=== PATIENT | male | born 1985 | race Caucasian/White ===

== ENCOUNTER 2017-07-17 03:34 | Emergency (ER) | payer OTHER ==
[2017-07-17 03:56] VITALS: BP 126/78; PULSE 84; RESP 21; TEMP 98.5; O2SAT 98
[2017-07-17] MEDS ORDERED: ZIPRASIDONE MESYLATE 20 MG VIAL IM ONE (04:00)
[2017-07-17] MEDS ORDERED: diphenhydrAMINE HCL 50 MG/ML VIAL IM ONE (04:00)
--- NOTE | 2017-07-17 07:16 | PD ---
HPI Chief Complaint: Alcohol/Drug Intoxication Time Seen by Provider: 03:47 Travel History International Travel<30 days: No Contact w/Intl Traveler<30days: No Traveled to known affect area: No History of Present Illness HPI Patient is a 32-year-old male who was apparently picked up by the police because of possible drug transaction but mainly it was because he was very intoxicated as being transported by the police he started trying to kick out the window and he was too intoxicated for the precinct so they brought him to the ER patient is very belligerent and cursing and not redirectable he was refusing to cooperate and I explained to him he could not be released he is too intoxicated. Patient says he's been more intoxicated before the numbness. Patient is given 50 IM of Benadryl and 10 of Geodon IM and 4 of Ativan IM he takes him over and half an hour from the falls sleep at which point his restraints were taken off and he is observed in the ER [facility] Past Medical History Medical History: Unable to Obtain Diminished Hearing: No Tetanus Vaccination: Unknown Past Surgical History Surgical History: Unable to Obtain Social History Alcohol Use: Yes Tobacco Use: No Substance Use: No (UTO) Allergies-Medications (Allergen,Severity, Reaction): Coded Allergies: No Known Allergies (Verified Allergy, Unknown, 07/17/17) Reported Meds & Prescriptions Reported Meds & Active Scripts Active No Active Prescriptions or Reported Medications Review of Systems ROS Limitations: Intoxication, Uncooperative Physical Exam Narrative GENERAL: agitated appears under the influence of some intoxicant SKIN: Warm and dry. HEAD: Atraumatic. ENT: No nasal bleeding or discharge. Mucous membranes pink and moist. NECK: Trachea midline. No JVD. CARDIOVASCULAR: Regular rate and rhythm. RESPIRATORY: no resp distress GASTROINTESTINAL: nondistended.. MUSCULOSKELETAL: Extremities without clubbing, cyanosis, or edema. No obvious deformities. NEUROLOGICAL: Awake and alert. No obvious cranial nerve deficits. Motor grossly within normal limits. Five out of 5 muscle strength in the arms and legs. Normal speech. PSYCHIATRIC: agitated threatening swearing at police and nurseing staff thrashing about in stretcher even after sedation . Data Data Last Documented VS Vital Signs Date Time Temp Pulse Resp B/P (MAP) Pulse Ox O2 Delivery O2 Flow Rate FiO2 07/17/17 03:56 98.5 84 21 126/78 (94) 98 Orders Orders Ziprasidone Inj (Geodon Inj) (07/17/17 04:00) Diphenhydramine Inj (Benadryl Inj) (07/17/17 04:00) Ed Discharge Order (07/17/17 09:39) MDM Medical Decision Making Medical Screen Exam Complete: Yes Emergency Medical Condition: Yes Differential Diagnosis Agitated alcohol-induced mood versus psychiatric mood disorder versus possibly substance abuse mood induced disorder Narrative Course Patient is quite agitated and a danger to himself I tried to explain to him he cannot leave and he needs to sleep it off he refuses and we decided medical restraint with chemical Geodon Benadryl Ativan is given and he sleeps finally and is then taken out of soft restraints and allowed to sleep that he'll be discharged in the a.m. on re-eval Diagnosis Primary Impression: Alcohol intoxication Scripts No Active Prescriptions or Reported Meds Donny Jacobsen MD Jul 17, 2017 07:16
--- NOTE | 2017-07-17 09:38 | PD ---
Physical Exam Narrative Informed by nurse that pt woke up and when she went to check his blood pressure , he refused and said "I'm f-ing leaving" and walked out. Pt had no IV on him and was ambulating without assistance. I was not able to reevaluate him since he walked out and was clinically sober. Pt was seen by previous provider and impression was alcohol intoxication and was medically clear to be discharge when he is sober. Pt is not a bourne act. Data Data Last Documented VS Vital Signs Date Time Temp Pulse Resp B/P (MAP) Pulse Ox O2 Delivery O2 Flow Rate FiO2 07/17/17 03:56 98.5 84 21 126/78 (94) 98 Orders Orders Ziprasidone Inj (Geodon Inj) (07/17/17 04:00) Diphenhydramine Inj (Benadryl Inj) (07/17/17 04:00) MDM Supervised Visit with VIVIANE: No Diagnosis Primary Impression: Alcohol intoxication Scripts No Active Prescriptions or Reported Meds Nieves Mcdonald DO Jul 17, 2017 09:38
== END 2017-07-17 09:43 | disposition home or self-care (01) ==
LOC: NEPE 03:34
DX: F10.129 Alcohol abuse with intoxication, unspecified (principal)
CPT/HCPCS: 96372; 99284; J1200; J3486